=== PATIENT | female | born 1950 | race Caucasian/White ===

== ENCOUNTER 2024-02-19 07:48 | Outpatient (CLI) | payer OTHER | END 2024-02-19 07:51 | disposition home or self-care (01) | LOC: SONOGRAMA 07:48 | PROVIDERS: ATTEND Pathology Anatomic Pathology & Clinical Pathology | DX: D34 Benign neoplasm of thyroid gland (principal); E06.3 Autoimmune thyroiditis; E04.2 Nontoxic multinodular goiter ==